=== PATIENT | male | born 1965 | race Caucasian/White ===

== ENCOUNTER 2019-12-05 06:36 | Inpatient (IN) | payer BC ==
[~2019-12-05] VITALS: Ht 180.3 cm; Wt 124.3 kg
[2019-12-05] MEDS ORDERED: amLODIPine BESYLATE 5 MG TAB PO ONE (07:00)
[2019-12-05 08:21] LABS: Basophils # (auto) 0.1 uL; Eosinophils # (auto) 0.1 uL; Eosinophils % (auto) 1.1 % (0.0-7.0); Hematocrit 50.3 % (41.0-53.0); Hemoglobin 17.2 g/dL (13.5-17.5); Lymphocytes # (auto) 1.1 uL; Lymphocytes % (auto) 11.6 % (10.0-50.0); Mean Corpuscular Hemoglobin 29.1 pg (28.0-32.0); Mean Corpuscular Hgb Conc. 34.3 g/dL (32.0-36.0); Mean Corpuscular Volume 84.7 fL (80.0-100.0); Monocytes # (auto) 0.7 uL; Monocytes % (auto) 7.3 % (0.0-12.0); Neutrophils # (auto) 7.8 uL; Platelet Count (auto) 286 10^3/uL (140-450); Red Blood Cells 5.93 10^6/uL (4.5-5.90); Red Cell Distribution Width 13.9 % (11.8-14.3); White Blood Cell 9.8 10^3/uL (4.4-10.8)
[2019-12-05 08:40] LABS: Albumin 4.6 g/dL (3.4-5.0); Anion Gap 9 (5-15); Calcium 9.2 mg/dL (8.5-10.1); Carbon Dioxide 25 mmol/L (21-32); Chloride 100 mmol/L (98-107); Glucose 224 mg/dL (74-106); Potassium 3.9 mmol/L (3.5-5.1); Sodium 134 mmol/L (136-145)
[2019-12-05 08:45] LABS: Alanine Aminotransferase 47 U/L (16-61); Alkaline Phosphatase 87 U/L (45-117); Aspartate Aminotransferase 22 U/L (15-37); BUN/Creatinine Ratio 9.8; Bilirubin, Total 0.6 mg/dL (0.2-1.0); Blood Urea Nitrogen 12 mg/dL (7-18); GFR African American 79 mL/min; GFR Non-African American 66 mL/min; Total Protein 8.5 g/dL (6.4-8.2)
[2019-12-05] MEDS ORDERED: cloNIDine HCL 0.1 MG TAB PO ONE (10:15)
[2019-12-05] MEDS ORDERED: HYDROcodone-ACET 5/325MG TAB PO ONE (10:15)
[2019-12-05] MEDS ORDERED: DEXTROSE (50%) 50ML SYRG IV PRN (13:15)
[2019-12-05] MEDS ORDERED: METOPROLOL TARTRATE 25 MG TAB PO ONE (13:15)
[2019-12-05] MEDS ORDERED: ENALAPRIL MALEATE 2.5 MG TAB PO ONE (13:15)
[2019-12-05] MEDS ORDERED: TEMAZEPAM 15 MG CAP PO PRN (13:15)
[2019-12-05] MEDS ORDERED: LACTULOSE 20Gm/30ML SOLN PO PRN (13:15)
[2019-12-05] MEDS ORDERED: PROMETHAZINE HCL 25 MG/ML 1ML IV PRN (13:15)
[2019-12-05] MEDS ORDERED: MORPHINE SULF INJ 2 MG/ML SYRINGE 1ML IV PRN (13:15)
[2019-12-05] MEDS ORDERED: LABETALOL HCL 5 MG/ML 4ML SYRINGE IV PRN (13:15)
[2019-12-05] MEDS ORDERED: LABETALOL HCL 5 MG/ML 4ML SYRINGE IV ONE (13:15)
[2019-12-05] MEDS ORDERED: NITROGLYCERIN 0.4 MG SL TAB SL PRN (13:15)
[2019-12-05] MEDS ORDERED: LABETALOL HCL 5 MG/ML ML 20ML VIAL IV PRN (13:45)
[2019-12-05] MEDS: SODIUM CHLOR 0.9% PF (SALINE LOCK) 10ML VIAL/SYR IV SCH ×2 (14:11→22:04)
[2019-12-05] MEDS: AMOXICILLIN/CLAVULAN 500 MG TAB PO SCH ×2 (14:50→22:04)
[2019-12-05] MEDS: ACETAMINOPHEN 500 MG TAB PO PRN ×2 (15:12→21:32)
[2019-12-05] MEDS: InsuLIN REG 1unit/0.01ml Soln (100units/ml) SC SCH ×2 (16:47→22:06)
[2019-12-05] MEDS: ACCU-CHEK COMFORT CURVE STRIP VI SCH ×2 (16:48→21:55)
[2019-12-05 21:00] VITALS: BP 127/78
[2019-12-05 21:23] VITALS: BP 127/78
[2019-12-05] MEDS: FAMOTIDINE 20 MG TAB PO SCH (22:00)
[2019-12-05] MEDS: METOPROLOL TARTRATE 25 MG TAB PO SCH (22:00)
[2019-12-05] MEDS: ENALAPRIL MALEATE 2.5 MG TAB PO SCH (22:05)
[2019-12-06] VITALS (7 sets, daily range): BP systolic 109–183; BP diastolic 63–101
[2019-12-06] MEDS: SODIUM CHLOR 0.9% PF (SALINE LOCK) 10ML VIAL/SYR IV SCH ×3 (06:29→22:18)
[2019-12-06] MEDS: AMOXICILLIN/CLAVULAN 500 MG TAB PO SCH ×3 (06:29→22:18)
[2019-12-06] MEDS: ACCU-CHEK COMFORT CURVE STRIP VI SCH ×4 (06:29→22:20)
[2019-12-06] MEDS: InsuLIN REG 1unit/0.01ml Soln (100units/ml) SC SCH ×4 (06:30→22:28)
[2019-12-06 07:53] LABS: Cholesterol 305 mg/dL (< 200); HDL Cholesterol 34 mg/dL (40-59); LDL Cholesterol 242 mg/dL (< 100); Triglycerides 193 mg/dL (< 150)
[2019-12-06] MEDS: LABETALOL HCL 5 MG/ML 4ML SYRINGE IV PRN ×2 (08:30→17:56)
[2019-12-06] MEDS: FAMOTIDINE 20 MG TAB PO SCH ×2 (09:44→22:19)
[2019-12-06] MEDS: TRIAMTERENE/HCTZ 37.5/25 MG CAP/TAB PO SCH (09:45)
[2019-12-06] MEDS: ENALAPRIL MALEATE 2.5 MG TAB PO SCH (09:45)
[2019-12-06] MEDS: METOPROLOL TARTRATE 25 MG TAB PO SCH (10:54)
[2019-12-06] MEDS ORDERED: ENALAPRIL MALEATE 10 MG TAB PO SCH ×2 (12:30→22:00)
[2019-12-06] MEDS ORDERED: METOPROLOL TARTRATE 50 MG TAB PO SCH (12:30)
[2019-12-06 14:57] LABS: Alcohol, Urine < 3.0 mg/dL (0-5); Amphetamine Screen, Urine NEGATIVE (NEGATIVE); Barbiturate Scree,Urine NEGATIVE (NEGATIVE); Benzodiazephine Screen, Urine NEGATIVE (NEGATIVE); Cannabinoid Screen, Urine NEGATIVE (NEGATIVE); Cocaine Screen, Urine NEGATIVE (NEGATIVE); Opiate Scree,Urine NEGATIVE (NEGATIVE); Phencyclidine Screen, Urine NEGATIVE (NEGATIVE)
[2019-12-06] MEDS: ACETAMINOPHEN 500 MG TAB PO PRN (14:57)
[2019-12-06] MEDS: ATORVASTATIN 20 MG TAB PO SCH (22:18)
[2019-12-06] MEDS: ENALAPRIL MALEATE 10 MG TAB PO SCH (22:20)
[2019-12-07] MEDS: METOPROLOL TARTRATE 50 MG TAB PO SCH ×3 (01:32→21:54)
[2019-12-07 05:00] VITALS: BP 134/92
[2019-12-07] MEDS: ACCU-CHEK COMFORT CURVE STRIP VI SCH ×4 (06:10→21:55)
[2019-12-07] MEDS: SODIUM CHLOR 0.9% PF (SALINE LOCK) 10ML VIAL/SYR IV SCH ×3 (06:10→21:54)
[2019-12-07] MEDS: AMOXICILLIN/CLAVULAN 500 MG TAB PO SCH ×3 (06:11→21:54)
[2019-12-07] MEDS: InsuLIN REG 1unit/0.01ml Soln (100units/ml) SC SCH ×4 (06:48→21:55)
[2019-12-07] MEDS: metFORMIN HYDROCHLORIDE 500 MG TAB PO SCH ×3 (08:48→18:12)
[2019-12-07 09:00] VITALS: BP 182/107
[2019-12-07] MEDS: FAMOTIDINE 20 MG TAB PO SCH ×2 (09:11→21:55)
[2019-12-07] MEDS: TRIAMTERENE/HCTZ 37.5/25 MG CAP/TAB PO SCH (09:15)
[2019-12-07] MEDS: ENALAPRIL MALEATE 10 MG TAB PO SCH ×2 (09:16→21:55)
[2019-12-07 11:00] VITALS: BP 136/90
[2019-12-07 13:00] VITALS: BP 122/83
[2019-12-07 17:00] VITALS: BP 142/96
[2019-12-07] MEDS: ATORVASTATIN 20 MG TAB PO SCH (21:54)
[2019-12-07 22:00] VITALS: BP 183/97
[2019-12-08] MEDS: ACCU-CHEK COMFORT CURVE STRIP VI SCH ×2 (06:16→11:30)
[2019-12-08] MEDS: SODIUM CHLOR 0.9% PF (SALINE LOCK) 10ML VIAL/SYR IV SCH (06:16)
[2019-12-08] MEDS: AMOXICILLIN/CLAVULAN 500 MG TAB PO SCH (06:16)
[2019-12-08] MEDS: InsuLIN REG 1unit/0.01ml Soln (100units/ml) SC SCH ×2 (06:17→11:30)
[2019-12-08 06:19] VITALS: BP 143/90
[2019-12-08] MEDS: metFORMIN HYDROCHLORIDE 500 MG TAB PO SCH ×2 (08:00→12:00)
[2019-12-08 09:00] VITALS: BP 151/81
[2019-12-08] MEDS: ENALAPRIL MALEATE 10 MG TAB PO SCH (10:00)
[2019-12-08] MEDS: FAMOTIDINE 20 MG TAB PO SCH (10:00)
[2019-12-08] MEDS: METOPROLOL TARTRATE 50 MG TAB PO SCH (10:00)
[2019-12-08] MEDS: TRIAMTERENE/HCTZ 37.5/25 MG CAP/TAB PO SCH (10:00)
[2019-12-08 13:00] VITALS: BP 155/94
[2019-12-08 13:50] VITALS: BP 155/94
[2019-12-08] MEDS ORDERED: VANCOMYCIN HCL 125MG/5ML ORAL SOL PO SCH (18:00)
[2019-12-08] MEDS ORDERED: metroNIDAZOLE 500 MG TAB PO SCH (22:00)
== END 2019-12-08 16:40 | disposition home or self-care (01) | DRG 305 ==
LOC: ER 06:36 → TELE 06:37 → TELE-CENTR 20:30
PROVIDERS: ADMIT Internal Medicine; ATTEND Family Medicine
DX: I16.1 Hypertensive emergency (principal); E87.1 Hypo-osmolality and hyponatremia; E78.5 Hyperlipidemia, unspecified; E66.01 Morbid (severe) obesity due to excess calories; E11.65 Type 2 diabetes mellitus with hyperglycemia; I10 Essential (primary) hypertension; R00.0 Tachycardia, unspecified; K04.7 Periapical abscess without sinus; Z68.38 Body mass index [BMI] 38.0-38.9, adult; Z79.899 Other long term (current) drug therapy; Z82.49 Family history of ischemic heart disease and other diseases of the circulatory system; Z87.891 Personal history of nicotine dependence; Z83.3 Family history of diabetes mellitus
CPT/HCPCS: 36415; 70450; 71046; 80053; 80061; 80307; 82962; 83036; 83835; 83880; 84484; 84585; 85025; 85652; 87493; 93005; 93306; 93976; 96374; 99291; G0378; J1815; J3490

== ENCOUNTER 2019-12-10 15:38 | Inpatient (IN) | payer BC ==
[~2019-12-10] VITALS: Ht 175.3 cm; Wt 122.3 kg
[2019-12-10] MEDS ORDERED: SODIUM CHLORIDE 0.9% 1,000 ML IVB ONE (16:14)
[2019-12-10 16:41] LABS: Basophils # (auto) 0.1 uL; Basophils % (auto) 0.7 % (0.0-2.0); Eosinophils # (auto) 0.1 uL; Eosinophils % (auto) 0.8 % (0.0-7.0); Hematocrit 50.4 % (41.0-53.0); Lymphocytes # (auto) 1.8 uL; Lymphocytes % (auto) 13.7 % (10.0-50.0); Mean Corpuscular Hemoglobin 28.3 pg (28.0-32.0); Mean Corpuscular Hgb Conc. 33.7 g/dL (32.0-36.0); Mean Corpuscular Volume 84.1 fL (80.0-100.0); Monocytes % (auto) 7.8 % (0.0-12.0); Neutrophils # (auto) 10.1 uL; Nucleated Red Blood Cells % 0.1 %; Platelet Count (auto) 346 10^3/uL (140-450); Red Blood Cells 5.99 10^6/uL (4.5-5.90); Red Cell Distribution Width 13.5 % (11.8-14.3); White Blood Cell 13.2 10^3/uL (4.4-10.8)
[2019-12-10] MEDS ORDERED: VANCOMYCIN HCL 500MG/5ML ORAL SOL PO ONE (17:00)
[2019-12-10] MEDS ORDERED: metroNIDAZOLE 500MG/100ML 100 ML IV ONE (17:00)
[2019-12-10 17:02] LABS: Magnesium 2.2 mg/dL (1.6-2.6)
[2019-12-10 17:07] LABS: Albumin 4.5 g/dL (3.4-5.0); Potassium 3.6 mmol/L (3.5-5.1)
[2019-12-10 17:09] LABS: Bilirubin, Total 0.9 mg/dL (0.2-1.0); Total Protein 8.5 g/dL (6.4-8.2)
[2019-12-10] MEDS ORDERED: VANCOMYCIN HCL 125MG/5ML ORAL SOL PO ONE (17:45)
[2019-12-10] MEDS ORDERED: PANTOPRAZOLE 40 MG/10 ML VIAL INJ IV ONE (18:15)
[2019-12-10] MEDS ORDERED: ONDANSETRON HCL 4 MG/2 ML VIAL IV ONE (18:15)
[2019-12-10] MEDS ORDERED: NITROGLYCERIN 0.4 MG SL TAB SL PRN (19:30)
[2019-12-10] MEDS ORDERED: ACETAMINOPHEN 500 MG TAB PO PRN (19:30)
[2019-12-10] MEDS ORDERED: ONDANSETRON HCL 4 MG/2 ML VIAL IV PRN (19:30)
[2019-12-10] MEDS ORDERED: MORPHINE SULF INJ 2 MG/ML SYRINGE 1ML IV PRN ×2 (19:30)
[2019-12-10] MEDS ORDERED: HYDROcodone-ACET 5/325MG TAB PO PRN (19:30)
[2019-12-10] MEDS ORDERED: SODIUM CHLORIDE 0.9% 1,000 ML IV ONE (19:30)
[2019-12-10] MEDS ORDERED: hydrALAZINE HCL 20 MG/ML VL IV PRN (19:30)
[2019-12-10] MEDS: VANCOMYCIN HCL 125MG/5ML ORAL SOL PO SCH (21:25)
[2019-12-10] MEDS: SODIUM CHLORIDE 0.9% 1,000 ML IV SCH (21:29)
[2019-12-10] MEDS ORDERED: metroNIDAZOLE 500MG/100ML 100 ML IV SCH (22:00)
[2019-12-10 22:31] LABS: Urine WBC None Seen /hpf (0 - 3)
[2019-12-10 23:10] LABS: Urine Bacteria NONE SEEN /hpf (None Seen); Urine Blood Negative /uL (Negative); Urine Specific Gravity 1.007 (1.001-1.035)
[2019-12-11] MEDS ORDERED: metroNIDAZOLE 500MG/100ML 100 ML IV SCH (02:00)
[2019-12-11] MEDS: SODIUM CHLORIDE 0.9% 1,000 ML IV SCH ×3 (03:30→23:46)
[2019-12-11] MEDS ORDERED: ENAL10TA PO (04:37)
[2019-12-11] MEDS ORDERED: DYA375C PO (04:45)
[2019-12-11] MEDS ORDERED: AMOX500T86 PO (04:45)
[2019-12-11] MEDS ORDERED: ATOR80TA PO (04:45)
[2019-12-11] MEDS ORDERED: METF-490 PO (04:45)
[2019-12-11] MEDS ORDERED: MET50T PO (04:45)
[2019-12-11] MEDS ORDERED: VANC125PO PO (04:45)
[2019-12-11 05:00] VITALS: BP 145/72
[2019-12-11 07:35] LABS: Basophils # (auto) 0.1 uL; Basophils % (auto) 0.6 % (0.0-2.0); Eosinophils # (auto) 0.2 uL; Eosinophils % (auto) 1.5 % (0.0-7.0); Hematocrit 47.9 % (41.0-53.0); Hemoglobin 16.3 g/dL (13.5-17.5); Lymphocytes % (auto) 30.4 % (10.0-50.0); Mean Corpuscular Hemoglobin 28.9 pg (28.0-32.0); Monocytes # (auto) 1.1 uL; Monocytes % (auto) 11.5 % (0.0-12.0); Neutrophils # (auto) 5.6 uL; Nucleated Red Blood Cells % 0.1 %; Platelet Count (auto) 288 10^3/uL (140-450); Red Blood Cells 5.63 10^6/uL (4.5-5.90); Red Cell Distribution Width 13.5 % (11.8-14.3)
[2019-12-11 07:50] LABS: BUN/Creatinine Ratio 13.9; Calcium 8.8 mg/dL (8.5-10.1); Potassium 3.2 mmol/L (3.5-5.1)
[2019-12-11 09:00] VITALS: BP 137/82
[2019-12-11] MEDS ORDERED: amLODIPine BESYLATE 5 MG TAB PO SCH (10:00)
[2019-12-11] MEDS: FAMOTIDINE 20 MG TAB PO SCH (10:41)
[2019-12-11] MEDS: FLORASTOR (S. BOULARDII) 250 MG CAP PO SCH (10:42)
[2019-12-11] MEDS: metroNIDAZOLE 500MG/100ML 100 ML IV SCH ×2 (10:42→17:31)
[2019-12-11] MEDS: VANCOMYCIN HCL 125MG/5ML ORAL SOL PO SCH ×3 (12:00→21:23)
[2019-12-11] MEDS ORDERED: TRIAMTERENE/HCTZ 37.5/25 MG CAP/TAB PO ONE (12:45)
[2019-12-11] MEDS ORDERED: DEXTROSE (50%) 50ML SYRG IV PRN (12:45)
[2019-12-11 13:00] VITALS: BP 150/92
[2019-12-11] MEDS: amLODIPine BESYLATE 5 MG TAB PO SCH (13:57)
[2019-12-11 17:00] VITALS: BP 145/100
[2019-12-11] MEDS: ACCU-CHEK COMFORT CURVE STRIP VI SCH ×2 (17:30→23:45)
[2019-12-11] MEDS: InsuLIN REG 1unit/0.01ml Soln (100units/ml) SC SCH ×2 (17:31→23:46)
[2019-12-11] MEDS: METOPROLOL TARTRATE 50 MG TAB PO SCH (21:16)
[2019-12-11 21:40] VITALS: BP 153/103
[2019-12-12] MEDS: metroNIDAZOLE 500MG/100ML 100 ML IV SCH ×2 (01:41→10:20)
[2019-12-12] MEDS: SODIUM CHLORIDE 0.9% 1,000 ML IV SCH (03:30)
[2019-12-12 04:56] VITALS: BP 148/82
[2019-12-12] MEDS: VANCOMYCIN HCL 125MG/5ML ORAL SOL PO SCH ×2 (05:20→12:00)
[2019-12-12] MEDS: ACCU-CHEK COMFORT CURVE STRIP VI SCH ×2 (05:30→12:00)
[2019-12-12] MEDS: InsuLIN REG 1unit/0.01ml Soln (100units/ml) SC SCH ×2 (05:30→12:00)
[2019-12-12 09:00] VITALS: BP 145/85
[2019-12-12] MEDS ORDERED: TRIAMTERENE/HCTZ 37.5/25 MG CAP/TAB PO SCH (10:00)
[2019-12-12] MEDS: FLORASTOR (S. BOULARDII) 250 MG CAP PO SCH (10:20)
[2019-12-12] MEDS: METOPROLOL TARTRATE 50 MG TAB PO SCH (10:20)
[2019-12-12] MEDS: amLODIPine BESYLATE 5 MG TAB PO SCH (10:30)
[2019-12-12] MEDS: FAMOTIDINE 20 MG TAB PO SCH (10:30)
[2019-12-12 12:24] VITALS: BP 145/85
== END 2019-12-12 14:39 | disposition home or self-care (01) | DRG 371 ==
LOC: ER 15:38 → OVERFLOW 15:39 → WEST WING 12-11 04:00
PROVIDERS: ADMIT Nurse Practitioner Acute Care; ATTEND Family Medicine
DX: A04.72 Enterocolitis due to Clostridium difficile, not specified as recurrent (principal); N17.0 Acute kidney failure with tubular necrosis; Z68.41 Body mass index [BMI] 40.0-44.9, adult; E87.1 Hypo-osmolality and hyponatremia; I10 Essential (primary) hypertension; K21.9 Gastro-esophageal reflux disease without esophagitis; E86.0 Dehydration; D72.829 Elevated white blood cell count, unspecified; E66.8 Other obesity; E11.21 Type 2 diabetes mellitus with diabetic nephropathy; Z90.49 Acquired absence of other specified parts of digestive tract; Z90.89 Acquired absence of other organs
CPT/HCPCS: 36415; 71046; 80048; 80053; 81001; 82962; 83690; 83735; 85025; 87081; 96361; 96365; 96375; C9113; G0378; J1815; J2405; J3490